=== PATIENT | female | born 1955 | race African-American/Black ===

== ENCOUNTER 2019-01-08 12:52 | Outpatient (CLI) | payer MEDICARE ==
--- NOTE | 2019-01-08 14:13 | ULT ---
BILATERAL LOWER EXTREMITY VENOUS DOPPLER ULTRASOUND: HISTORY: Bilateral leg pain. TECHNIQUE: Weber scale ultrasound with color flow and spectral Doppler imaging of the deep venous system of the l ower extremities was performed bilaterally. FINDINGS: There is good flow, compression, and augmentation noted in the common femoral, femoral, deep femoral, popliteal, posterior tibial, and greater saphenous veins. IMPRESSION: No evidence of deep vein thrombosis in either lower extremity. POS: OFF
== END 2019-01-08 12:53 | disposition home or self-care (01) ==
LOC: ULT 12:52
PROVIDERS: ATTEND Neurological Surgery
DX: M79.604 Pain in right leg (principal); M79.605 Pain in left leg
CPT/HCPCS: 93970

== ENCOUNTER 2019-01-10 07:06 | Inpatient (IN) | payer MEDICARE ==
[2019-01-09 13:44] VITALS: BMI 33.5
[2019-01-10 08:30] LABS: #Eosinphils 0.2 thou/uL (0.0-0.7); #Lymphocytes 1.8 thou/uL (1.20-3.40); #Monocytes 1.6 thou/uL (0.11-0.59); %Basophils 0.1 % (0.0-1.0); %Eosinophils 1.4 % (0.0-10.0); %Lymphocytes 10.6 % (21.0-51.0); %Monocytes 9.5 % (0.0-10.0); %Neutrophils 78.3 % (42.0-75.0); Hemoglobin 12.8 g/dL (12.0-16.0); Mean Corpuscular HGB CONC 31.6 g/dL (32.0-36.0); Mean Corpuscular Hemoglobin 31.2 pg (27.0-31.0); Mean Corpuscular Volume 98.8 fL (78.0-98.0); Mean Platelet Volume 7.6 fL (7.4-10.4); Platelet Count 216 thou/uL (130-400); RBC Distribution Width 17.3 % (11.5-14.5); Red Blood Cell (RBC) Count 4.09 mill/uL (4.20-5.40); White Blood Cell (WBC) Count 16.6 thou/uL (4.8-10.8)
[2019-01-10 08:35] LABS: PTT 22.9 SEC (22.9-36.1); Prothrombin Time 13.2 SEC (12.0-14.7)
[2019-01-10] MEDS ORDERED: Fentanyl 100 MCG/2 ML VIAL ONE ×3 (08:49→18:12)
[2019-01-10] MEDS ORDERED: Bupivacaine HCl 0.5%/Epinephrine 1:200,000/PF 30 ml Vial ONE (09:32)
[2019-01-10] MEDS ORDERED: Thrombin 5000 UNITS/5 ML VIAL ONE ×2 (09:32→12:29)
[2019-01-10] MEDS ORDERED: Bacitracin Zinc Ointment 30 gm TUBE ONE (09:32)
[2019-01-10] MEDS ORDERED: Sodium Chloride 0.9% 20 ML ONE (09:32)
[2019-01-10] MEDS ORDERED: Ketamine 50 MG/ML (10ML VIAL) ONE (09:40)
[2019-01-10] MEDS ORDERED: HYDROmorphone 2 MG/ML VIAL ONE (10:53)
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
[2019-01-10] MEDS ORDERED: Rocuronium Bromide 50 MG/5 ML VIAL ONE (12:24)
[2019-01-10] MEDS ORDERED: Ondansetron PF 4 MG/2 ML Vial ONE ×3 (13:40→16:33)
[2019-01-10] MEDS ORDERED: Acetaminophen 325 MG TAB PO PRN (13:55)
[2019-01-10] MEDS ORDERED: diphenhydrAMINE 50 MG/ML VIAL IVP PRN (13:55)
[2019-01-10] MEDS ORDERED: Promethazine HCl 25 MG/ML VIAL IM PRN ×2 (13:55→14:09)
[2019-01-10] MEDS ORDERED: Mag-Al 1200 mg/1200 mg/30 ML UDCUP PO PRN (13:55)
[2019-01-10] MEDS ORDERED: Ondansetron PF 4 MG/2 ML Vial IVP PRN (13:55)
[2019-01-10] MEDS ORDERED: Promethazine 25 MG TAB PO PRN (13:55)
[2019-01-10] MEDS ORDERED: Morphine 4 MG/ML VIAL SLOW IVP PRN (13:55)
[2019-01-10] MEDS ORDERED: Bisacodyl 10 MG SUPP PR PRN (13:55)
[2019-01-10] MEDS ORDERED: Acetaminophen/Codeine 30-300mg Tablet PO PRN (13:55)
[2019-01-10] MEDS ORDERED: tiZANidine HCl 4 MG TAB PO PRN (13:55)
[2019-01-10] MEDS ORDERED: Milk Of Magnesia 30 ML UDCUP PO PRN (13:55)
[2019-01-10] MEDS ORDERED: Acetaminophen 650 MG Suppository PR PRN (13:55)
[2019-01-10] MEDS ORDERED: traMADol HCl 50 MG TAB PO PRN (13:55)
[2019-01-10] MEDS ORDERED: diphenhydrAMINE 25 MG CAP PO PRN (13:55)
[2019-01-10] MEDS ORDERED: Ondansetron HCl/PF 4 MG/2 ML Vial IVP PRN (14:09)
[2019-01-10] MEDS ORDERED: Morphine Sulfate 2 MG/ML SYRINGE SLOW IVP PRN (14:09)
[2019-01-10] MEDS ORDERED: Meperidine HCl/PF 25 MG/ML VIAL SLOW IVP PRN (14:09)
[2019-01-10] MEDS ORDERED: Ketorolac Tromethamine 30 MG/ML VIAL IVP PRN (14:09)
[2019-01-10] MEDS ORDERED: Dexamethasone 20 MG/5 ML VIAL ONE (16:33)
[2019-01-10] MEDS ORDERED: Rocuronium Bromide 10 MG/ML (10ML VIAL) ONE (16:33)
[2019-01-10] MEDS ORDERED: Glycopyrrolate 0.2 MG/ML 5 ML SYRINGE ONE (16:33)
[2019-01-10] MEDS ORDERED: Lidocaine 2% PF 5 ML VIAL ONE (16:33)
[2019-01-10] MEDS ORDERED: PROPOFOL 200 MG/20 ML VIAL ONE (16:33)
[2019-01-10] MEDS ORDERED: PHENYLEPHRINE-NS 100 MCG/ML 10 ML SYRINGE ONE (16:33)
[2019-01-10] MEDS ORDERED: CEFAZOLIN 2 GM in Premix Bag 1 BAG IVPB SCH (17:00)
--- NOTE | 2019-01-10 20:38 | OP ---
DATE OF PROCEDURE: 01/10/2019 ENTERPRISE INTEGRATION ARCHITECT: Cinda Juarez PA-C. PREOPERATIVE INDICATIONS: Make diagnosis, prevent neurological deterioration. 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 PROCEDURES PERFORMED: Laminectomy with medial facetectomy at C6 and C7, durotomy, resection of intradural extramedullary lesion, operating microscope, dural closure. PREOPERATIVE MEDICATIONS: Ancef 2 g IV. DRAIN NUMBER: 0. DRAIN TYPE: None. DESCRIPTION OF PROCEDURE: The patient was brought to the operating room. General endotracheal anesthesia was induced. The patient was positioned prone on the operating table with the chest and hips supported by gel-filled chest rolls. A lateral fluoro radiograph was obtained to help plan our incision. The back of the neck and posterior cervical skin were sterilely prepped and draped. We opened with a 10 blade knife and controlled bleeding with bipolar cautery. We used monopolar cautery to dissect through subcutaneous tissues to the ligamentum nuchae. We incised the ligament in the midline and we reflected the paraspinal muscles off the spinous process and lamina of C6 and C7 as well as the inferior portion of C5. A self-retaining retractor was placed, and a lateral fluoro radiograph confirmed the level of spine, which we were operating. We then used an Adson rongeur to remove the spinous processes and Kerrison rongeurs. We performed careful laminectomy at C7 and C6. We removed the entire lamina at both levels. We widened our laminectomy defect by performing medial facetectomies and then we removed the yellow ligament in a piecemeal fashion. We obtained hemostasis in the lateral recesses with gentle bipolar cautery. We then brought the operative microscope into the field. Under microscopic magnification using microsurgical techniques, we carefully opened the dura. The arachnoid was kept intact as we opened the dura intact into the paraspinal muscles. We then opened the arachnoid. Through the CSF, we could see an intradural extramedullary mass on the right side of the intradural portion of the spinal canal. This was not adherent to the dura itself. It was involved in arachnoid. It was from the posterior aspect of the cervical cord as well, but nerve roots were adherent to it. All the nerve roots could be carefully teased off using microsurgical techniques, save for one. There was a small nerve root leading in and the small nerve root leading out that could not be saved and these were both gently bipolared and cut sharply. The entire lesion was then sent to Pathology for histopathological diagnosis. We irrigated copiously with bacitracin irrigation. Hemostasis was excellent. Using a running 6-0 Prolene, we closed the dura, where we had opened it. We reinforced our dural closure with DuraSeal tissue sealant. We irrigated copiously with bacitracin irrigation before using the DuraSeal. We treated the wound with vancomycin powder and we closed in anatomical layers. We applied a sterile dressing. This was a clean case, no contamination. Job ID: [id number]
[2019-01-10] MEDS: Cyclobenzaprine 10 MG TAB PO PRN (20:55)
[2019-01-10] MEDS: Acetaminophen/Codeine 30-300mg Tablet PO PRN (20:55)
[2019-01-10] MEDS: Morphine 2 MG/ML SYRINGE SLOW IVP PRN (20:56)
[2019-01-10] MEDS: Lisinopril 20 MG TAB PO SCH (20:57)
[2019-01-10] MEDS: CEFAZOLIN 2 GM in Premix Bag 1 BAG IVPB SCH (21:06)
[2019-01-10] MEDS: Ondansetron ODT 8 MG TAB PO SCH (22:58)
[2019-01-10] MEDS: Sodium Chloride 0.9% 1,000 ML IV SCH (22:59)
[2019-01-11] MEDS: Acetaminophen/Codeine 30-300mg Tablet PO PRN ×4 (00:56→22:06)
[2019-01-11] MEDS: Sodium Chloride 0.9% 1,000 ML IV SCH ×2 (01:33→16:46)
[2019-01-11] MEDS: Morphine 2 MG/ML SYRINGE SLOW IVP PRN (05:28)
[2019-01-11] MEDS: CEFAZOLIN 2 GM in Premix Bag 1 BAG IVPB SCH (05:30)
--- NOTE | 2019-01-11 08:02 | PRG ---
DATE OF SERVICE: 01/11/2019 The patient is a 63-year-old female with a past medical history of colon cancer, who is postoperative day #1 status post C6-C7 laminectomy for suspected meningioma. Following the surgery, she was transitioned to the Med/Surg floor. She reports she has had difficulty with pain issues overnight and thus has been slow to mobilize. She had no incisional drainage issues. A Spring catheter remains in place. She has been afebrile overnight. The patient is lying comfortably in the bed. Her incision appears to be dry and intact. She has free active range of motion of bilateral upper and lower extremities, although does seem to be slightly weak overall 4-/5, slightly increased on the left-hand side. She is hyperreflexive throughout. I did not attempt to ambulate the patient at this time. We will remove the Spring catheter today. We will continue to mobilize with the assistance of Physical Therapy. We discuss home at some point with home health versus inpatient rehab, and the patient is preferring to plan to discharge to home with home health in the near future. We will continue to mobilize and work on pain control, and I anticipate that she will remain with us through the weekend. Job ID: [id number]
[2019-01-11] MEDS ORDERED: Prevnar 13-Val Conj/PF 0.5 ML SYRINGE IM ONE (09:00)
[2019-01-11] MEDS: Prochlorperazine Maleate 5 MG TAB PO SCH (09:49)
[2019-01-11] MEDS: Lisinopril 20 MG TAB PO SCH ×2 (09:50→22:07)
[2019-01-11] MEDS: HYDROcodone/Acetaminophen 5/325 mg Tablet PO PRN (12:49)
[2019-01-11] MEDS: Cyclobenzaprine 10 MG TAB PO PRN (19:27)
[2019-01-11] MEDS: Ondansetron ODT 8 MG TAB PO SCH (22:07)
[2019-01-12] MEDS: HYDROcodone/Acetaminophen 5/325 mg Tablet PO PRN ×3 (00:37→16:23)
[2019-01-12] MEDS: traMADol HCl 50 MG TAB PO PRN ×2 (06:14→12:23)
[2019-01-12] MEDS: Sodium Chloride 0.9% 1,000 ML IV SCH ×2 (06:18→08:41)
[2019-01-12] MEDS ORDERED: Clopidogrel Bisulfate 75 MG TAB ONE (08:08)
--- NOTE | 2019-01-12 08:09 | PRG ---
DATE OF SERVICE: 01/12/2019 The patient is postoperative day #2, status post C6 to C7 laminectomy. She has been monitored closely on the Med/Surg floor, but it is very slow to mobilize secondary to pain and weakness from her myelopathic symptoms. She has sat in chair for short period, mobilized short distances in her room with a walker with assistance with OT, and using a bedside commode. Initially, the patient preferred to go home with home health, but following evaluation by PT and OT as well as conversations with her family, she is amenable to inpatient rehabilitation. The patient is awake, alert, in no acute distress. Her incision is dry and intact. She has free active range of motion of all extremities, but it does appear to be slightly weak, 4-/5 overall. She is hyperreflexive throughout. We will do a rehab screen as I feel this will be best for the patient's overall long-term progress. We will continue to work on pain control mobilization while she is with us inpatient. Job ID: [id number] MTDD
[2019-01-12] MEDS: Prochlorperazine Maleate 5 MG TAB PO SCH (08:37)
[2019-01-12] MEDS: Lisinopril 20 MG TAB PO SCH (08:37)
--- NOTE | 2019-01-12 12:34 | PRG ---
DATE OF SERVICE: 01/12/2019 Ms. Hester is doing reasonably well following resection of a cervical meningioma. She has significant incisional and muscular pain and is requiring significant pain medicine in this regard. This is causing her to doze off on occasion and limits her participation with therapy. She has been out of bed, all the things are going slowly. Neurologically, she is at her baseline. I reassured her and her sister. We are gearing up for inpatient rehab and she will have a formal screen tomorrow. Job ID: [id number]
[2019-01-12 16:17] VITALS: TEMP 98.7
[2019-01-12 16:20] VITALS: BP 120/63
--- NOTE | 2019-01-15 07:30 | PQF ---
[employer] Scalemaker Crystal Reports Winform Viewer CEFERINO DOUGLAS MONTRELL Celina CRUZ MD [id number] SURG B- [id number] As per usual, the clinical documentation team has alerted me in the patient chart that they need more words written for coding and billing purposes, rather than for patient care. To clarify, Ms. Douglas presented with myelopathy from a cervical intradural extramedullary mass causing cord compression. The differential dx for this type of lesion typically includes meningioma, schwannoma, neurofibroma, exophytic spinal cord lesion, metastasis. Of these, meningioma is the most common in this setting. At surgery, the frozen section diagnosis (which is not the final histopathological dx) suggested schwannoma. After discharge, the pathology team will finalize the diagnosis, but it has nothing to do with the care of the patient in the acute setting. In clinic, we will review the final reports and make a treatment plan. Luckily, we are fairly confident in the benign nature of the lesion and the fact that we have the time to be careful before making a treatment plan. Any and all diagnoses more specific than intradural extramedullary mass used during hospitalization not final, and the benign lesions referenced are likely to have the exact same treatment between discharge and clinic visit - nothing. MTDD
== END 2019-01-12 18:20 | DRG 29 ==
LOC: SURG A 07:06 → EDSTATUS 11:10 → SURG B 18:57
PROVIDERS: ADMIT Neurological Surgery; ATTEND Neurological Surgery
PROC: 00BT0ZZ Excision of Spinal Meninges, Open Approach (ICD-10-PCS; principal; 2019-01-10)
DX: D32.1 Benign neoplasm of spinal meninges (principal); C18.9 Malignant neoplasm of colon, unspecified; G95.29 Other cord compression; I10 Essential (primary) hypertension; F17.200 Nicotine dependence, unspecified, uncomplicated
CPT/HCPCS: 36415; 36416; 76000; 85025; 85610; 85730; 88307; 88331; 88334; J0131; J0670; J0690; J1100; J1170; J2001; J2270; J2405; J2704; J3010; J3370; J3490; Q0164